=== PATIENT | female | born 1930 | race Caucasian/White ===

== ENCOUNTER 2016-04-18 11:00 | Inpatient (IN) | payer OTHER, MEDICARE ==
[~2016-04-18] VITALS: Ht 154.9 cm; Wt 63.1 kg
[~2016-04-18 11:00] MED LIST: ALPRAZOLAM0.25 MG PO; ANTIVERT 25 MG25 M1 PO; ANTIVERT 25MG #1 PAC PO; AZITHROMYCIN250 M1 PO; B-121000 MC3 PO; B12 1MG PE1000 MCG/M IM; CEFTIN500 M1 PO; CEFUROXIME AXE500 MG PO; CIPRO 250MG250 MG PO; CIPRO 500MG TA500 MG PO; CYANOCOBAL1000 MCG/2 IM; DAILY MULTIPLE1 EACH PO; GLUCOPHAGE850 M1 PO; LISINOPRIL10 MG PO; LISINOPRIL20 M1 PO; LISINOPRIL40 M1 PO; LOPRESSOR50 MG PO; MAG-OX 400400 MG PO; MAGNESIUM400 M1 PO; METFORMIN HCL850 M1 PO; MIRALAX17 GM PO; MULTIVITAMINS1 EAC9 PO; NYSTATIN100000 UNI PO; OMEPRAZOLE40 M1 PO; OMEPRAZOLE40 MG PO; PLAVIX 75MG TAB75 MG PO; PLAVIX75 M1 PO; PRILOSEC 20MG C20 MG PO; SIMVASTATIN20 M2 PO; SIMVASTATIN20 MG PO; TOPROL XL25 M1 PO; TOPROL XL50 M1 PO; TYLENOL #31 TAB PO; TYLENOL XSTR500 MG PO; VIGAMOX 0.60 GTT/1 B IO; VITAB121000 PO; XANAX0.25 M1 PO
--- NOTE | 2016-04-18 11:03 | ED GENERAL ADULT ---
History of Present Illness General Chief Complaint: General Adult Stated Complaint: BIBA WEAKNESS Source: patient, family Exam Limitations: poor historian Vital Signs & Intake/Output Vital Signs & Intake/Output Vital Signs Date Time Temp Pulse Resp B/P Pulse O2 O2 Flow FiO2 Ox Delivery Rate 04/18 1746 98.3 69 20 130/60 95 Nasal Cannula 04/18 1619 97.9 69 20 127/60 95 Nasal 2.0L Cannula 04/18 1617 97.8 04/18 1321 78 18 122/70 93 Room Air 04/18 1106 97.8 74 18 123/58 91 Allergies Coded Allergies: pork derived (porcine) (DIETARY RESTRICTION 06/05/15) Reconcile Medications Acetaminophen (Tylenol Xstr) 500 MG TAB 2 TAB PO Q6 PRN PAIN (Reported) Alprazolam (Xanax) 0.25 MG TABLET 1 TAB PO Q8H PRN ANXIETY (Reported) Clopidogrel Bisulfate (Plavix) 75 MG TABLET 1 TAB PO DAILY PROPHYLACTIC ( Reported) Cyanocobalamin (Vitamin B-12) (Cyanocobalamin Injection) 1,000 MCG/ML VIAL 1 ML IM Q30D SUPPLEMENT (Reported) Cyanocobalamin (Vitamin B-12) (B-12) 1,000 MCG TABLET 1 TAB PO DAILY SUPPLEMENT (Reported) Lisinopril 40 MG TABLET 1 TAB PO DAILY HTN (Reported) Magnesium Oxide (Magnesium) 400 MG CAPSULE 1 CAP PO DAILY SUPPLEMENT ( Reported) Metformin HCl 850 MG TABLET 1 TAB PO BID DM (Reported) Metoprolol Succ XL (Toprol XL) 25 MG TAB 1 TAB PO DAILY HTN (Reported) Multiple Vitamin (Multivitamins) 1 EACH TABLET 1 TAB PO DAILY SUPPLEMENT ( Reported) Omeprazole 40 MG CAPSULE. 1 CAP PO DAILY GERD (Reported) Simvastatin (Simvastatin*) 20 MG TABLET 1 TAB PO QPM HPL (Reported) Triage Nurses Notes Reviewed? yes Onset: Abrupt Duration: hour(s): Timing: recent history HPI: 04/18/16 85-year-old female presents to the emergency department for weakness and the sensation that she's going to . According to her family members she said that she woke up this morning feeling weak and said she was feeling like she was given a . There is no chest pain there is no headache there is no fever. The onset of the symptoms were abrupt, the duration was just today, the severity was significant as her symptoms required her to come to the emergency department for care. She has past medical history of recent onset of slurred speech. This is been worked up and no etiology was found. She does admit to cough and some difficulty breathing. Past History Medical History Any Pertinent Medical History? see below for history Neurological: CVA EENT: cataracts Cardiovascular: CAD, hypertension, hyperlipidemia Respiratory: NONE Gastrointestinal: GERD, GI BLEED Hepatic: NONE Renal: UTI Musculoskeletal: NONE Psychiatric: NONE Endocrine: diabetes, B12 DEFICIENCY Blood Disorders: NONE Cancer(s): NONE SECURITY SYSTEM TECHNICIAN/Reproductive: NONE History of MRSA: No History of VRE: No History of CDIFF: No Surgical History Surgical History: ENDARDERECTOMY CARDIAC STENTS ANGIOPLASTY AND STENTING Psychosocial History Who do you live with Daughter Services at Home None What is your primary language [facility] Family History Hx Contributory? No Review of Systems Review of Systems Constitutional: Denies: fever. EENTM: Denies: visual changes. Respiratory: Reports: cough, short of breath. Cardiovascular: Denies: chest pain. GI: Denies: abdominal pain. Genitourinary: Reports: no symptoms. Musculoskeletal: Reports: no symptoms. Skin: Denies: rash. Neurological/Psychological: Denies: headache. Physical Exam Physical Exam General Appearance: alert, awake, anxious, moderate distress Head: atraumatic, normal appearance Eyes: Bilateral: normal appearance, PERRL, EOMI. Ears, Nose, Throat: normal pharynx, normal ENT inspection Neck: normal inspection, supple, full range of motion Respiratory: chest non-tender, decreased breath sounds Cardiovascular: regular rate/rhythm Peripheral Pulses: 4+ radial (R), 4+ radial (L) Gastrointestinal: non-tender Back: decreased range of motion Extremities: no edema Neurologic/Psych: no motor/sensory deficits, awake, alert, oriented x 3 Skin: intact, normal color Core Measures ACS in differential dx? Yes CVA/TIA Diagnosis: No Severe Sepsis Present: No Septic Shock Present: No Progress Differential Diagnoses I considered the following diagnoses in my evaluation of the patient: [Pneumonia , bronchitis, sepsis, acute coronary syndrome, UTI] Plan of Care: Orders Procedure Date/time Status Consistent Carbohydrate 2 04/19 D Active Heart Healthy Diet 04/19 B Active CBC WITHOUT DIFFERENTIAL 04/19 599 Active BASIC ELECTROLYTES PLUS BUN&CR 04/19 599 Active Heart Healthy Diet 04/18 D Complete BLOOD CULTURE 04/18 1639 Active Pathway - chart 04/18 1624 Active House Staff 04/18 1624 Active BLOOD CULTURE 04/18 1624 Active Code Status 04/18 1624 Active PT Evaluate & Treat 04/18 1557 Active Patient Data 04/18 1546 Active Admit to inpatient 04/18 1537 Active Vital Signs 04/18 1537 Active Code Status 04/18 1537 Complete Intake & Output 04/18 1311 Active STREP PNEUMO URINARY ANTIGEN 04/18 1251 Complete LEGIONELLA URINARY ANTIGEN 04/18 1251 Complete RAPID VIRAL INFLUENZA A 04/18 1200 Complete CULTURE,URINE 04/18 1200 Active URINALYSIS 04/18 1200 Complete TROPONIN LEVEL 04/18 1200 Complete COMPREHENSIVE METABOLIC PANEL 04/18 1200 Complete CBC WITHOUT DIFFERENTIAL 04/18 1200 Complete EKG 04/18 1120 Active SWALLOW EVALUATION 04/18 UNK Active Lab Add-on Test 04/18 UNK Active VTE Mechanical Prophylaxis 04/18 UNK Active FingerStick- Glucose 04/18 UNK Active Current Medications Sig/Amrik Start time Last Medication Dose Stop Time Status Admin Azithromycin 500 MG DAILY 04/19 1000 AC (Zithromax) Dextrose/Water 250 ML (D5W) Ceftriaxone Sodium 1,000 MG DAILY 04/19 1000 AC (Rocephin) Cyanocobalamin 1,000 MCG DAILY 04/19 1000 AC (Vitamin B12) Enoxaparin Sodium 40 MG DAILY 04/19 1000 AC (Lovenox) Lisinopril 40 MG DAILY 04/19 1000 CAN (Prinivil) Magnesium Oxide 400 MG DAILY 04/19 1000 AC (Mag-Ox) Omeprazole 40 MG DAILY AC 04/19 0700 AC (Prilosec) Insulin Aspart 0 TIDAC 04/18 1700 AC (NovoLOG) Alprazolam 0.25 MG Q8H PRN 04/18 1645 AC (Xanax) 04/25 1644 Metoprolol Succinate 25 MG DAILY 04/18 1631 AC (Toprol XL) Acetaminophen 650 MG Q6P PRN 04/18 1630 AC (Tylenol) Clopidogrel Bisulfate 75 MG DAILY 04/18 1625 AC (Plavix) Laboratory Tests 04/18/16 1231: Urine Color YEL, Urine Clarity CLEAR, Urine pH 6.0, Ur Specific [place] 1.020, Urine Protein NEG, Urine Ketones NEG, Urine Nitrite NEG, Urine Bilirubin NEG, Urine Urobilinogen 0.2, Ur Leukocyte Esterase NEG, Ur Microscopic EXAM NOT REQUIRED, Urine Hemoglobin NEG, Urine Glucose NEG 04/18/16 1228: Anion Gap 7, Estimated GFR > 60, BUN/Creatinine Ratio 34.0 H, Glucose 101 H, Calcium 9.1, Total Bilirubin 1.1, AST 21, ALT 27, Alkaline Phosphatase 55, Troponin I 0.06, Total Protein 5.9 L, Albumin 3.5, Globulin 2.4, Albumin/ Globulin Ratio 1.5, CBC w Diff NO MAN DIFF REQ, RBC 3.93 L, MCV 97.3, MCH 32.0 H, RDW 16.6 H, MPV 6.9 L, Gran % 85.5 H, Lymphocytes % 13.3 L, Monocytes % 1.0 L, Eosinophils % 0, Basophils % 0.2, Absolute Granulocytes 6.3, Absolute Lymphocytes 1.0 L, Absolute Monocytes 0.1 L, Absolute Eosinophils 0, Absolute Basophils 0, PUBS MCHC 32.9 L Microbiology 04/18 1820 BLOOD: Blood Culture - RECD 04/18 1810 BLOOD: Blood Culture - RECD 04/18 1659 URINE ROUT: Legionella Antigen - CAN Cancelled: Cancelled via OE: Per MD Decision 04/18 1251 URINE ROUT: Legionella Antigen - COMP 04/18 1251 URINE ROUT: Streptococcus pneumoniae Antigen (M - COMP 04/18 1231 URINE ROUT: Urine Culture - RECD Initial ED EKG: NSR, nonspecific ST T wave chg Departure Departure Disposition: STILL A PATIENT Condition: Stable Clinical Impression Primary Impression: Pneumonia Referrals: CAYLA STOKES,VIVIANE Pierce (PCP/Family) Departure Forms: Customer Survey General Discharge Information Comments The patient was treated with IV antibiotics and placed on oxygen. She was admitted to the hospital for further care. She did have bandemia, with a left shift. Chest x-ray shows right middle lobe infiltrate. PATIENT: LOAN ANNE PRESENT AGE: 85 PATIENT ACCOUNT NO: [id number] : 30 LOCATION: [facility] ORDERING PHYSICIAN: JANEEN HADLEY DO SERVICE DATE: 04/18/16-1200 EXAM TYPE: RAD - XRY-PORTABLE CHEST XRAY EXAMINATION: XR PORTABLE CHEST CLINICAL INFORMATION: Evaluate for pneumonia. COMPARISON: Chest radiograph 03/06/[address] chest 07/13/2015. TECHNIQUE: Portable AP view of the chest was obtained. FINDINGS: Although this patient has a known epicardial fat pad there is increased opacity within the right lower hemithorax that obscures the right mediastinal contours which raises the suspicion of a middle lobe pneumonia. There is no pleural effusion or pneumothorax. Upper mediastinal contours are stable. Surgical clips are visualized within the neck. No acute osseous finding. IMPRESSION: Suspected right middle lobe pneumonia. DICTATED BY: CHEYENNE KENNEY MD DATE/TIME DICTATED:04/18/161236 DRAG SAWYER:RAYMOND DATE/TIME TRANSCRIBED:04/18/161236 CONFIDENTIAL, DO NOT COPY WITHOUT APPROPRIATE AUTHORIZATION. <Electronically signed in Other Vendor System> SIGNED BY: CHEYENNE KENNEY MD 04/18 1247 Admission Note Spoke With: SHEA MCNULTY MD Documentation of Exam: Documentation of any treatments & extenuating circumstances including Concerns Regarding Discharge (functional status, medication knowledge or non-compliance, living conditions, etc.) that warrant an admission rather than observation: [The patient needs admission for IV antibiotics, oxygen, she is short of breath on exertion] Critical Care Note Critical Care Note Critical Care Time: non-applicable
--- NOTE | 2016-04-18 11:19 | NUR ---
NING FROM HOME, PER EMS, FAMILY REPORTS PT HAS BEEN C/O WEAKNESS AND SOB X 5 WEEKS. TODAY C/O HEADACHE, STATES, "I WANT TO ". PT ALERT, PALE, PRIMARILY CENTRAL AFRICAN SPEAKING. 02 SAT 91% RA, PLACED ON 02 AT 2L NASAL CANULA. EVALUATED BY LEONIE.
--- NOTE | 2016-04-18 11:50 | NUR ---
PT'S DAUGHTER REPORTS THAT SHE HASNT TAKEN HER MEDS THIS AM, AMBULATES WITH A CANE.
--- NOTE | 2016-04-18 12:30 | NUR ---
PT BACK FROM CT SCAN AND RADIOLOGY. STATES "IM OK". PT DENIES ANY CURRENT PAIN. FLU SWAB OBTAINED AND SENT. BLOOD DRAW IN PROGRESS
--- NOTE | 2016-04-18 12:30 | NUR ---
ASSITED TO COMMODE. ABLE TO PIVOT WITH HELP.
--- NOTE | 2016-04-18 12:37 | CT SCAN REPORT ---
EXAMINATION: CT HEAD WITHOUT CONTRAST CLINICAL INFORMATION: Altered mental status. COMPARISON: CT head 03/14/2016. TECHNIQUE: Contiguous axial imaging was performed from the skull base to vertex without intravenous administration of contrast. DLP: 743.8 mGy-cm. FINDINGS: There is chronic encephalomalacia and gliosis within the medial right occipital lobe related to an old right posterior cerebral artery territory infarct. An old lacunar infarct within the left centrum semiovale is stable. There is extensive hypoattenuation throughout the periventricular white matter that most likely represents a chronic manifestation of small vessel ischemia. There is no acute intracranial hemorrhage or abnormal extra-axial collection. Naik-white matter differentiation is grossly preserved and there is no evidence of acute territorial infarct. A dome-shaped calcified dural based mass that bulges into the posterior fossa to the left of midline presumably representing a chronically calcified meningioma remains unchanged when compared to the recent CT scan of the head from 03/06/2016. There is no intracranial mass effect or midline shift. No abnormal extra axial collection to lateral and third ventricles are proportionate to the subarachnoid spaces. No hydrocephalus. The calvarium and skull base are intact. Mastoid air cells and middle ear cavities are well aerated. Visualized paranasal sinuses are well aerated. IMPRESSION: Stable chronic findings. No evidence of acute territorial infarct or hemorrhage.
[2016-04-18 12:38] LABS: ABSOLUTE BASOPHIL COUNT 0 /CUMM (0.0-0.2); ABSOLUTE EOSINOPHIL COUNT 0 /CUMM (0.0-0.7); ABSOLUTE GRANULOCYTE CT 6.3 /CUMM (1.4-6.5); ABSOLUTE MONOCYTE COUNT 0.1 /CUMM (0.10-0.60); BASOPHIL % 0.2 % (0.0-2.0); EOSINOPHIL % 0 % (0-5); HEMATOCRIT 38.3 % (37-47); MEAN CORPUSCULAR HGB CONC 32.9 G/DL (33.0-37.0); MEAN CORPUSCULAR VOLUME 97.3 FL (81.0-99.0); MEAN PLATELET VOLUME 6.9 FL (7.4-10.4); PLATELET COUNT 179 /CUMM (130-400); RBC DISTRIBUTION WIDTH 16.6 % (11.5-14.5); RED BLOOD CELL CT 3.93 /CUMM (4.20-5.40); WHITE BLOOD CELL COUNT 7.4 /CUMM (4.8-10.8)
--- NOTE | 2016-04-18 12:47 | RADIOLOGY REPORT ---
EXAMINATION: XR PORTABLE CHEST CLINICAL INFORMATION: Evaluate for pneumonia. COMPARISON: Chest radiograph 03/06/[address] chest 07/13/2015. TECHNIQUE: Portable AP view of the chest was obtained. FINDINGS: Although this patient has a known epicardial fat pad there is increased opacity within the right lower hemithorax that obscures the right mediastinal contours which raises the suspicion of a middle lobe pneumonia. There is no pleural effusion or pneumothorax. Upper mediastinal contours are stable. Surgical clips are visualized within the neck. No acute osseous finding. IMPRESSION: Suspected right middle lobe pneumonia.
[2016-04-18 12:56] LABS: GRANULOCYTE % 85.5 % (42.2-75.2)
--- NOTE | 2016-04-18 13:37 | NUR ---
PT MEDICATED WITH 650MG PO OF TYELNOL. PT REPOSITIONED IN BED, FAMILY REMAINS AT BEDSIDE
--- NOTE | 2016-04-18 14:30 | NUR ---
HEART HEALTHY DIET ORDERED.
--- NOTE | 2016-04-18 14:39 | NUR ---
[facility] ([facility]) [phone] [facility] ([place])
--- NOTE | 2016-04-18 15:36 | NUR ---
ASSUMED CARE OF THIS PATIENT REPORT RECEIVED FROM CHAPO SCHAFER 2ND IV ACCESS ESTABLISHED, #22 RW IV ROCEPHIN INFUSION INITIATED PER ORDERS PER REPORT FROM CHAPO SCHAFER PT DID NOT NEED B/C PRIOR TO STARTING ABX, CONFIRMED SAME WITH DR HADLEY.
--- NOTE | 2016-04-18 16:00 | NUR ---
[facility] PROVIDED HOUSE STAFF AT BEDSIDE
--- NOTE | 2016-04-18 16:18 | NUR ---
IV ZITHROMAX INFUSION INITIATED PER ORDERS
--- NOTE | 2016-04-18 16:22 | Admission Certification ---
Admission Certification Certification Statement - As attending physician, I certify that at the time of - admission, based on clinical presentation, severity of - symptoms, need for further diagnostic testing and - therapeutic interventions, and risk of adverse outcomes - without in-hospital treatment, in my clinical assessment, - this patient requires an acute hospital stay for a minimum - of two nights or longer. I have also considered psychsocial - factors such as support system, advanced age, financial - issues, cognitive issues, and failed out-patient treatments, - past re-admission history, safety of patient, and lack of - compliance as applicable. Specific rationale supporting this admission is: PNEUMONIA IN PT WITH DM, HTN AND CAD
--- NOTE | 2016-04-18 16:27 | History & Physical ---
NANCY VIDALES MD 04/18/16 3746: General Information and HPI MD Statement: I have seen and personally examined ZULMA ANNE and documented this H&P. The patient is a 85 year old F who presented with a patient stated chief complaint of altered mental status. Source of Information: patient, family, old records Exam Limitations: clinical condition, poor historian History of Present Illness: Ms. Anne is a pleasant 85 year old [place] female with significant PMH of CVA, HTN, HLD, coronary artery disease status post PCI in 2007, peripheral vascular disease status post right carotid endarterectomy, patent foramen ovale, anxiety, type 2 DM and GERD who was brought in to [facility] via ambulance after her daughter noted that the patient was not as responsive as normal while talking on the phone. History is obtained mostly from patient's daughter as patient's primary language is [place]. Daugther endorsed increasing weakness and delayed speech in her mother for about 6 weeks, beginning after her last discharge from [facility] on 02/03/16 for acute hypoxemic respiratory failure due to community-acquired pneumonia. Zulma was noted to be delayed in her responses this morning and reported to her daughter that she "feels like she is dying" because she was so weak. Associated symptoms include lethargy/weakness, decreased appetite without weight loss, cough, dyspnea on exertion as well as a choking cessation when she has fluids or solid food. Patient currently denies fever, chills, chest pain, palpitations, sputum production, abdominal pain, dysuria, constipation, diarrhea or recent weight loss. Past surgical history is significant for endarterectomy and PCI s/p stenting in 2007. Social history is negative for tobacco use (current or prior) as well as negative for alcohol or illicit drug use. Patient ambulates with use of a cane. Patient lives with her eldest daughter. She is independant in her ADLs. Allergies/Medications Home Med list Acetaminophen (Tylenol Xstr) 500 MG TAB 2 TAB PO Q6 PRN PAIN (Reported) Alprazolam (Xanax) 0.25 MG TABLET 1 TAB PO Q8H PRN ANXIETY (Reported) Clopidogrel Bisulfate (Plavix) 75 MG TABLET 1 TAB PO DAILY PROPHYLACTIC ( Reported) Cyanocobalamin (Vitamin B-12) (Cyanocobalamin Injection) 1,000 MCG/ML VIAL 1 ML IM Q30D SUPPLEMENT (Reported) Cyanocobalamin (Vitamin B-12) (B-12) 1,000 MCG TABLET 1 TAB PO DAILY SUPPLEMENT (Reported) Lisinopril 40 MG TABLET 1 TAB PO DAILY HTN (Reported) Magnesium Oxide (Magnesium) 400 MG CAPSULE 1 CAP PO DAILY SUPPLEMENT ( Reported) Metformin HCl 850 MG TABLET 1 TAB PO BID DM (Reported) Metoprolol Succ XL (Toprol XL) 25 MG TAB 1 TAB PO DAILY HTN (Reported) Multiple Vitamin (Multivitamins) 1 EACH TABLET 1 TAB PO DAILY SUPPLEMENT ( Reported) Omeprazole 40 MG CAPSULE.DR 1 CAP PO DAILY GERD (Reported) Simvastatin (Simvastatin*) 20 MG TABLET 1 TAB PO QPM HPL (Reported) Compliance With Home Meds: UNKNOWN Past History Travel History Traveled to [place] past 21 day No Medical History Neurological: CVA EENT: cataracts Cardiovascular: CAD, hypertension, hyperlipidemia Respiratory: NONE Gastrointestinal: GERD, GI BLEED Hepatic: NONE Renal: UTI Musculoskeletal: NONE Psychiatric: NONE Endocrine: diabetes, B12 DEFICIENCY Blood Disorders: NONE Cancer(s): NONE JOURNEYMAN PRESSMAN/Reproductive: NONE History of MRSA: No History of VRE: No History of CDIFF: No Isolation History: Standard Surgical History Surgical History: ENDARDERECTOMY CARDIAC STENTS ANGIOPLASTY AND STENTING Past Family/Social History Psychosocial History Where do you live? Home Who Do You Live With? child Services at Home: None Primary Language: [place] Smoking Status: Never Smoked ETOH Use: denies use Illicit Drug Use: denies illicit drug use Functional Ability ADLs Independent: dressing, eating, toileting, bathing. Ambulation: cane IADLs Unknown: shopping, housework, finances, food prep, telephone, transportation, medication admin. Review of Systems Review of Systems Constitutional: Reports: malaise, weakness. Denies: chills, fever, unexplained weight loss. EENTM: Denies: blurred vision, visual changes, hearing changes, nasal congestion, throat pain. Cardiovascular: Reports: peripheral edema (Occasionally). Denies: chest pain, palpitations. Respiratory: Reports: cough, short of breath (On exertion). Denies: sputum production, wheezing. GI: Denies: abdominal pain, bloating, constipation, diarrhea, nausea, vomiting. Genitourinary: Denies: dysuria, hematuria, pain. Musculoskeletal: Denies: back pain. Skin: Denies: rash. Neurological/Psychological: Reports: weakness. Denies: confusion, headache, numbness, paresthesia, pre- existing deficit. Hematologic/Endocrine: Denies: bruising, bleeding. Immunologic/Allergic: Denies: splenectomy. All Other Systems: Reviewed and Negative Exam & Diagnostic Data Last 24 Hrs of Vital Signs/I&O Vital Signs Date Time Temp Pulse Resp B/P Pulse O2 O2 Flow FiO2 Ox Delivery Rate 04/18 1619 97.9 69 20 127/60 95 Nasal 2.0L Cannula 04/18 1617 97.8 04/18 1321 78 18 122/70 93 Room Air 04/18 1106 97.8 74 18 123/58 91 Intake & Output 04/18 1600 04/18 0800 04/18 0000 Intake Total 0 Output Total Balance 0 Intake, Oral 0 Patient 150 lb Weight Physical Exam General Appearance Alert, Oriented X3, Cooperative, No Acute Distress Skin No Significant Lesion HEENT Atraumatic, PERRLA, EOMI, Mucous Membr. moist/pink Neck Supple, No JVD Lymphatic Cervical nl Cardiovascular Regular Rate, Normal S1, Normal S2 Lungs Rhonchi appreciated at left lung base, no respiratory distress noted, normal air entry bilaterally. Abdomen Normal Bowel Sounds, Soft, No Tenderness, No Hepatospenomegaly, No Masses Neurological Normal Speech, Normal Tone Extremities No Clubbing, No Cyanosis, Minimal bilateral edema appreciated. Vascular Pulses Symmetrical Last 24 Hrs of Labs/Abiodun: Laboratory Tests 04/18/16 1231: Urine Color YEL, Urine Clarity CLEAR, Urine pH 6.0, Ur Specific [place] 1.020, Urine Protein NEG, Urine Ketones NEG, Urine Nitrite NEG, Urine Bilirubin NEG, Urine Urobilinogen 0.2, Ur Leukocyte Esterase NEG, Ur Microscopic EXAM NOT REQUIRED, Urine Hemoglobin NEG, Urine Glucose NEG 04/18/16 1228: Anion Gap 7, Estimated GFR > 60, BUN/Creatinine Ratio 34.0 H, Glucose 101 H, Calcium 9.1, Total Bilirubin 1.1, AST 21, ALT 27, Alkaline Phosphatase 55, Troponin I 0.06, Total Protein 5.9 L, Albumin 3.5, Globulin 2.4, Albumin/ Globulin Ratio 1.5, CBC w Diff NO MAN DIFF REQ, RBC 3.93 L, MCV 97.3, MCH 32.0 H, RDW 16.6 H, MPV 6.9 L, Gran % 85.5 H, Lymphocytes % 13.3 L, Monocytes % 1.0 L, Eosinophils % 0, Basophils % 0.2, Absolute Granulocytes 6.3, Absolute Lymphocytes 1.0 L, Absolute Monocytes 0.1 L, Absolute Eosinophils 0, Absolute Basophils 0, PUBS MCHC 32.9 L Microbiology 04/18 1659 URINE ROUT: Legionella Antigen - ORD 04/18 1659 URINE ROUT: Streptococcus pneumoniae Antigen (M - ORD 04/18 1639 BLOOD: Blood Culture - ORD 04/18 1624 BLOOD: Blood Culture - ORD 04/18 1231 URINE ROUT: Urine Culture - RECD Diagnostic Data EKG Results NSr with HR 71 bpm, PACs noted, QTC 448, flattening of T waves. CXR Results EXAMINATION: XR PORTABLE CHEST CLINICAL INFORMATION: Evaluate for pneumonia. COMPARISON: Chest radiograph 03/06/[address] chest 07/13/2015. TECHNIQUE: Portable AP view of the chest was obtained. FINDINGS: Although this patient has a known epicardial fat pad there is increased opacity within the right lower hemithorax that obscures the right mediastinal contours which raises the suspicion of a middle lobe pneumonia. There is no pleural effusion or pneumothorax. Upper mediastinal contours are stable. Surgical clips are visualized within the neck. No acute osseous finding. IMPRESSION: Suspected right middle lobe pneumonia. Other Results EXAMINATION: CT HEAD WITHOUT CONTRAST CLINICAL INFORMATION: Altered mental status. COMPARISON: CT head 03/14/2016. TECHNIQUE: Contiguous axial imaging was performed from the skull base to vertex without intravenous administration of contrast. DLP: 743.8 mGy-cm. FINDINGS: There is chronic encephalomalacia and gliosis within the medial right occipital lobe related to an old right posterior cerebral artery territory infarct. An old lacunar infarct within the left centrum semiovale is stable. There is extensive hypoattenuation throughout the periventricular white matter that most likely represents a chronic manifestation of small vessel ischemia. There is no acute intracranial hemorrhage or abnormal extra-axial collection. Naik-white matter differentiation is grossly preserved and there is no evidence of acute territorial infarct. A dome-shaped calcified dural based mass that bulges into the posterior fossa to the left of midline presumably representing a chronically calcified meningioma remains unchanged when compared to the recent CT scan of the head from 03/06/2016. There is no intracranial mass effect or midline shift. No abnormal extra axial collection to lateral and third ventricles are proportionate to the subarachnoid spaces. No hydrocephalus. The calvarium and skull base are intact. Mastoid air cells and middle ear cavities are well aerated. Visualized paranasal sinuses are well aerated. IMPRESSION: Stable chronic findings. No evidence of acute territorial infarct or hemorrhage. Assessment/Plan Assessment: Ms. Anne is a pleasant 85 year old female with PMH CVA, HTN, HLD, coronary artery disease status post PCI in 2007, peripheral vascular disease status post right carotid endarterectomy, patent foramen ovale, anxiety, type 2 DM and GERD who was sent in from home via ambulance after her daughter noted that Zulma was less responsive. The daughter noted that on a phone call this morning, Zulma reported she felt like she was dying because she was so weak. This was associated with recent reports of cough, dyspnea on exertion, decreased oral intake secondary to decreased appetite and recent episode of choking on food/ fluid. Patient currently denies fever, chills, dizziness, chest pain, palpitations, sputum production, abdominal pain, nausea, vomiting or change in bowel/bladder function. In the ED: Vital signs showed T 97.8, HR 74, RR 18, BP 123/59 and O2 saturation of 91% on RA. CBC was grossly normal (with WBC 7.4) and BEP was also WNL. Troponin was 0.06. UA was done which showed no signs of infection. EKG was obtained and revealed NSR with HR 71 bpm, PACs, QTC 448 and minor flattening of T waves. CXR showed suspected right middle lobe pneumonia. Head CT showed stable chronic findings, no acute infarct or hemorrhage. Patient was admitted to the general medicine floor and the following is the management: 1. Community acquired pneumonia * No fever, leukocytosis on amission, though patient endorses cough, dyspnea on exertion, malaise and CXR does show RML pneumonia * Rapid flu negative * Provide supplemental O2 to keep saturations >92% * Begin IV azithromycin and ceftriaxone * Blood cultures x 2, LRC, UC, urine for strep/legionella pending, f/u results * Consider aspiration or underlying malignancy due to recurrent PNA (last admission with acute hypoxic respiratory failure 2/2 PNA in January 2016) * Swallow evaluation placed for the AM, f/u results 2. CAD s/p stending, HTN * Vital signs Q shift * Continue metoprolol XL 25 mg PO daily * Plavix 75 mg PO daily 3. Type 2 DM * Hold metformin * Start low dose NSS TIDAC * Accuchecks TIDAC * Diabetic diet 4. GERD * Continue omeprazole 40 mg PO daily 5. Vitamin B12 deficiency * 1000 mcg PO daily of Vit B12 6. Anxiety * 0.25 mg PO xanax Q8H PRN anxiety FULL CODE DVTP: Lovenox SC & ALPS Diet: Consistent carbohydrate 2 Mild pain pathway As Ranked By This Provider Problem List: 1. Pneumonia 2. Hyperlipidemia 3. Hypertension 4. Vitamin B12 deficiency 5. Dyspnea 6. Malaise 7. Diabetes mellitus type 2 8. CVA 9. Benign essential hypertension 10. Asymptomatic coronary heart disease Core Measures/Miscellaneous Acute Coronary Syndrome ACS Diagnosis: No Cerebrovascular Accident CVA/TIA Diagnosis: No Congestive Heart Failure CHF Diagnosis: No Venous Thromboembolism VTE Risk Factors: Acute medical illness, Age > 40, Immobility, paresis VTE Prophylaxis Ordered Inpt: Mech & Pharm No Mech VTE prophylaxis d/t: No contraindications No VTE Pharm Prophylaxis d/t: No contraindications VTE Diagnosis: No VTE Type: NONE VTE Confirmed by (Test): NONE Severe Sepsis Severe Sepsis Present: No Septic Shock Septic Shock Present: No Miscellaneous Documentation Attending Case Discussed With: PRICILA STOKES,SHEA Lord Primary Care Physician: CAYLA STOKES,VIVIANE Pierce Patient sees these Specialists Unknown. Level of Patient Care: General Medicine PRICILA STOKES,SHEA 04/18/16 1652: Attending MD Review Statement Attending Statement Attending MD Statement: examined this patient, discuss w/resident/PA/COTTON CLEANER, agreed w/resident/PA/COTTON CLEANER, reviewed EMR data (avail), reviewed images Attending Assessment/Plan: 85 year old [place]an speaking female with PMH DM, HTN and CAD here with Comm Acq Pneumonia. Although no fever and obvious leukocytosis, pt c/o cough, SOB and generalized weakness and Xray shows RML pneumonia. Plan to bring to , check blood c/s, IV Ceftriaxone, Azithro and F/U swallow eval (? h/o occasional choking). Cont beta ian, statin, and plavix. F/u clinically. Given recurrent pneumonia (similar presentation in jan 2016) low threshold to look for aspiration vs CT chest to look for malignancy. DVT prophylaxis and f/u. PAULETTE MONTANO 04/18/16 1713: Resident Review Statement Resident Statement: examined this patient, discussed with internal combustion engineer, agreed with internal combustion engineer, reviewed images, amended to note Other Findings: 85-year-old lady with past medical history of CAD with stenting 2007, hyperlipidemia, hypertension, diabetes, CVA was brought to the hospital with chief complaint of weakness and coughing. Patient was discharged from the [facility] in January 2016 to rehabilitation with diagnoses of pneumonia at that time. Per patient and her daughter she is still have weakness and occasional dry coughing with exertional dyspnea for 6 weeks. She also reports that patient is is slow in responding to questions. Especially today when the daughter calls the patient's in the morning she could not answer her questions correctly. Patient also reports of occasional choking on foods and headaches but no fever, chills, diarrhea,, chest pain constipation, abdominal pain. Vital signs on admission were stable which is written above. Skin No Rashes, No Breakdown, No Significant Lesion HEENT Atraumatic, PERRLA, EOMI Neck Supple, No JVD, No thryomegaly Lymphatic Cervical nl Cardiovascular Regular Rate, Normal S1, Normal S2, 3/6 systolic murmur Lungs crackles on the base of the left lung Abdomen Normal Bowel Sounds, Soft, No Tenderness, No Hepatospenomegaly, No Masses Neurological Normal Gait, Normal Speech, Strength at 5/5 X4 Ext, Sensation Intact Extremities No Clubbing, No Cyanosis, No Edema,Normal Pulses Apparently patient O2 saturation on room air was 91% which increased to 95% on 2 L. Patient last echocardiogram showed pulmonary hypertension of 60 mmHg and stage I diastolic dysfunction BEP,CBC,troponin,UA was unremarkable CXR showed IMPRESSION: Suspected right middle lobe pneumonia. HEAD CT: IMPRESSION: Stable chronic findings. No evidence of acute territorial infarct or hemorrhage. EKG showed normal sinus rhythm, PACs, with flattening of the T in V4,V5 comparing to previous EKG Assessment and plan #Community-acquired pneumonia versus aspiration pneumonia * Admit to general floor * Vital signs per shift * Keep O2 saturation over 92% * Put the patient on IV ceftriaxone and IV azithromycin * Blood cultures 2, sputum culture * Swallow evaluation in the morning * Check urine Legionella and strep antigen #History of CAD, hypertension, hyperlipidemia, Anxiety -Continue home medication, lisinopril dose should be confirmed with the patient daughter #Diabetes -Hold metformin, sliding scale insulin, diabetic diet, Accu-Cheks 4 times a day DVT prophylaxis is Lovenox and Alps, full code, Tylenol for pain, diabetic diet
--- NOTE | 2016-04-18 16:37 | NUR ---
BED ASSIGNMENT RECEIVED AT 16:10, 230-2. ATTEMPTED TO GIVE REPORT TO CHAPO DIXON WHO WILL CALL BACK
--- NOTE | 2016-04-18 16:43 | NUR ---
BED ASSIGNMENT [id number]
--- NOTE | 2016-04-18 16:47 | NUR ---
REPORT TO CHAPO DIXON.
[2016-04-18 17:46] VITALS: BP 130/60
[2016-04-18 22:52] VITALS: BP 112/60
--- NOTE | 2016-04-19 06:45 | PN- Housestaff ---
See Addendum Subjective Follow-up For: CAP Altered mental status Subjective: Patient seen and examiend at bedside this AM. She reports she was not interested in the breakfast that was served to her, however her daughter is bringing her [employer]. Speech therapy was at bedside on interview and suggested that patient passed bedside swallow. She will be changed to mechanical soft/ground and thin liquids per their recommendations. Review of Systems Constitutional: Reports: malaise, weakness. Denies: chills, fever. EENTM: Denies: blurred vision, visual changes, hearing changes, nasal congestion, throat pain. Cardiovascular: Reports: peripheral edema (Occasionally). Denies: chest pain, palpitations. Respiratory: Reports: cough (Chronic), short of breath (On exertion). Denies: sputum production, wheezing. Gastrointestinal: Denies: abdominal pain, bloating, constipation, diarrhea. Genitourinary: Denies: dysuria. Musculoskeletal: Denies: back pain. Skin: Denies: rash. Neurological/Psychological: Reports: weakness. Denies: confusion, headache. Hematologic/Endocrine: Denies: bruising, bleeding. Objective Last 24 Hrs of Vital Signs/I&O Vital Signs Date Time Temp Pulse Resp B/P Pulse O2 O2 Flow FiO2 Ox Delivery Rate 04/19 1009 70 112/60 04/19 0619 94 Nasal 2.0L Cannula 04/19 0000 96 Nasal 2.0L Cannula 04/18 2252 98.4 70 20 112/60 96 Nasal Cannula 04/18 1850 130/76 04/18 1746 98.3 69 20 130/60 95 Nasal Cannula 04/18 1645 Nasal 2.0L Cannula 04/18 1619 97.9 69 20 127/60 95 Nasal 2.0L Cannula 04/18 1617 97.8 04/18 1321 78 18 122/70 93 Room Air 04/18 1106 97.8 74 18 123/58 91 Intake & Output 04/19 1600 04/19 0800 04/19 0000 Intake Total 580 Output Total 500 350 Balance -500 230 Intake, IV 100 Intake, Oral 480 Number 0 Bowel Movements Output, Urine 500 350 Patient 139 lb Weight Physical Exam General Appearance: Alert, Oriented X3, Cooperative, No Acute Distress Other Physical Findings: Skin No Significant Lesion HEENT Atraumatic, PERRLA, EOMI, Mucous Membr. moist/pink Neck Supple, No JVD Lymphatic Cervical nl Cardiovascular Regular Rate, Normal S1, Normal S2 Lungs Rhonchi appreciated at left lung base, no respiratory distress noted, normal air entry bilaterally. Abdomen Normal Bowel Sounds, Soft, No Tenderness, No Hepatospenomegaly, No Masses Neurological Normal Speech, Normal Tone Extremities No Clubbing, No Cyanosis, Minimal bilateral edema appreciated. Vascular Pulses Symmetrical Current Medications: Current Medications Sig/Amrik Start time Last Medication Dose Route Stop Time Status Admin Acetaminophen 650 MG Q6P PRN 04/18 1630 AC 04/18 PO 1940 Acetaminophen 0 .STK-MED ONE 04/18 1334 DC PO Acetaminophen 650 MG ONCE ONE 04/18 1330 DC 04/18 PO 04/18 1331 1337 Alprazolam 0.25 MG Q8H PRN 04/18 1645 AC 04/19 PO 04/25 1644 0020 Azithromycin 500 MG DAILY 04/19 1000 AC 04/19 Dextrose/Water 250 ML IV 1008 Azithromycin 500 MG ONCE ONE 04/18 1515 DC 04/18 Dextrose/Water 250 ML IV 04/18 1614 1617 Ceftriaxone Sodium 1,000 MG DAILY 04/19 1000 AC 04/19 IV 1008 Ceftriaxone Sodium 0 .STK-MED ONE 04/18 1530 DC .ROUTE Ceftriaxone Sodium 1,000 MG ONCE ONE 04/18 1515 DC 04/18 IV 04/18 1516 1535 Clopidogrel Bisulfate 75 MG DAILY 04/18 1625 AC 04/19 PO 1009 Cyanocobalamin 1,000 MCG DAILY 04/19 1000 AC 04/19 PO 1009 Enoxaparin Sodium 40 MG DAILY 04/19 1000 AC 04/19 SC 1009 Insulin Aspart 0 TIDAC 04/18 1700 AC SC Lisinopril 40 MG DAILY 04/20 1000 AC PO Lisinopril 40 MG ONCE ONE 04/19 1045 DC PO 04/19 1046 Lisinopril 20 MG DAILY 04/19 1036 DC PO Lisinopril 40 MG DAILY 04/19 1000 CAN PO Magnesium Oxide 400 MG DAILY 04/19 1000 AC 04/19 PO 1009 Metoprolol Succinate 25 MG DAILY 04/18 1631 AC 04/19 PO 1009 Omeprazole 40 MG DAILY AC 04/19 0700 AC PO Last 24 Hrs of Lab/Abiodun Results Last 24 Hrs of Labs/Mics: Laboratory Tests 04/19/16 0730: Anion Gap 7, Estimated GFR > 60, BUN/Creatinine Ratio 31.7 H, CBC w Diff NO MAN DIFF REQ, RBC 3.61 L, MCV 98.2, MCH 32.5 H, RDW 17.1 H, MPV 7.6, Gran % 76.5 H, Lymphocytes % 17.2 L, Monocytes % 5.8, Eosinophils % 0.2, Basophils % 0.3, Absolute Granulocytes 8.4 H, Absolute Lymphocytes 1.9, Absolute Monocytes 0.6, Absolute Eosinophils 0, Absolute Basophils 0, PUBS MCHC 33.1 04/18/16 1231: Urine Color YEL, Urine Clarity CLEAR, Urine pH 6.0, Ur Specific [place] 1.020, Urine Protein NEG, Urine Ketones NEG, Urine Nitrite NEG, Urine Bilirubin NEG, Urine Urobilinogen 0.2, Ur Leukocyte Esterase NEG, Ur Microscopic EXAM NOT REQUIRED, Urine Hemoglobin NEG, Urine Glucose NEG 04/18/16 1228: Anion Gap 7, Estimated GFR > 60, BUN/Creatinine Ratio 34.0 H, Glucose 101 H, Calcium 9.1, Total Bilirubin 1.1, AST 21, ALT 27, Alkaline Phosphatase 55, Troponin I 0.06, Total Protein 5.9 L, Albumin 3.5, Globulin 2.4, Albumin/ Globulin Ratio 1.5, CBC w Diff NO MAN DIFF REQ, RBC 3.93 L, MCV 97.3, MCH 32.0 H, RDW 16.6 H, MPV 6.9 L, Gran % 85.5 H, Lymphocytes % 13.3 L, Monocytes % 1.0 L, Eosinophils % 0, Basophils % 0.2, Absolute Granulocytes 6.3, Absolute Lymphocytes 1.0 L, Absolute Monocytes 0.1 L, Absolute Eosinophils 0, Absolute Basophils 0, PUBS MCHC 32.9 L Microbiology 04/18 1819 BLOOD: Blood Culture - RECD 04/18 1809 BLOOD: Blood Culture - RECD 04/18 1659 URINE ROUT: Legionella Antigen - CAN Cancelled: Cancelled via OE: Per MD Decision 04/18 1251 URINE ROUT: Legionella Antigen - COMP 04/18 1251 URINE ROUT: Streptococcus pneumoniae Antigen (M - COMP 04/18 1231 URINE ROUT: Urine Culture - RES Orders Radiology Findings: Head CT: FINDINGS: There is chronic encephalomalacia and gliosis within the medial right occipital lobe related to an old right posterior cerebral artery territory infarct. An old lacunar infarct within the left centrum semiovale is stable. There is extensive hypoattenuation throughout the periventricular white matter that most likely represents a chronic manifestation of small vessel ischemia. There is no acute intracranial hemorrhage or abnormal extra-axial collection. Naik-white matter differentiation is grossly preserved and there is no evidence of acute territorial infarct. A dome-shaped calcified dural based mass that bulges into the posterior fossa to the left of midline presumably representing a chronically calcified meningioma remains unchanged when compared to the recent CT scan of the head from 03/06/2016. There is no intracranial mass effect or midline shift. No abnormal extra axial collection to lateral and third ventricles are proportionate to the subarachnoid spaces. No hydrocephalus. The calvarium and skull base are intact. Mastoid air cells and middle ear cavities are well aerated. Visualized paranasal sinuses are well aerated. IMPRESSION: Stable chronic findings. No evidence of acute territorial infarct or hemorrhage. Assessment/Plan Assessment: Ms. Serrato is a pleasant 85 year old female with PMH CVA, HTN, HLD, coronary artery disease status post PCI in 2007, peripheral vascular disease status post right carotid endarterectomy, patent foramen ovale, anxiety, type 2 DM and GERD who was sent in from home via ambulance after her daughter noted that Zulma was less responsive. The daughter noted that on a phone call this morning, Zulma reported she felt like she was dying because she was so weak. This was associated with recent reports of cough, dyspnea on exertion, decreased oral intake secondary to decreased appetite and recent episode of choking on food/ fluid. Patient currently denies fever, chills, dizziness, chest pain, palpitations, sputum production, abdominal pain, nausea, vomiting or change in bowel/bladder function. In the ED: Vital signs showed T 97.8, HR 74, RR 18, BP 123/59 and O2 saturation of 91% on RA. CBC was grossly normal (with WBC 7.4) and BEP was also WNL. Troponin was 0.06. UA was done which showed no signs of infection. EKG was obtained and revealed NSR with HR 71 bpm, PACs, QTC 448 and minor flattening of T waves. CXR showed suspected right middle lobe pneumonia. Head CT showed stable chronic findings, no acute infarct or hemorrhage. Patient was admitted to the general medicine floor and the following is the management: 1. Community acquired pneumonia * No fever, leukocytosis on amission, though patient endorses cough, dyspnea on exertion, malaise and CXR does show RML pneumonia * Leukocytosis on AM labs to 10.9 today * Rapid flu negative * Provide supplemental O2 to keep saturations >92%, patient currently on 1 L and saturating well * Continue IV azithromycin and ceftriaxone, though if WBC continues to trend upwards, we will consider broadening coverage for HCAP as patient is in 90 day window for HCAP * Blood cultures x 2, LRC, UC, f/u results; urine for strep/legionella negative * Consider aspiration or underlying malignancy due to recurrent PNA (last admission with acute hypoxic respiratory failure 2/2 PNA in January 2016) * Though swallow eval shows no signs of aspiration today, consider barium swallow if suspicion persists * Change diet to mechanical ground and thins as per swallow eval 2. CAD s/p stending, HTN * Vital signs Q shift * Continue metoprolol XL 25 mg PO daily * Plavix 75 mg PO daily 3. Type 2 DM * Hold metformin * Start low dose NSS TIDAC * Accuchecks TIDAC * Diabetic diet 4. GERD * Continue omeprazole 40 mg PO daily 5. Vitamin B12 deficiency * 1000 mcg PO daily of Vit B12 6. Anxiety * 0.25 mg PO xanax Q8H PRN anxiety FULL CODE DVTP: Lovenox SC & ALPS Diet: Consistent carbohydrate 2 Mild pain pathway Problem List: 1. Hypertension 2. Hyperlipidemia 3. Right middle lobe pneumonia 4. Weakness 5. Diabetes mellitus type 2 6. Benign essential hypertension Pain Ratin Pain Location: N/A Pain Goal: Remain pain free Pain Plan: Tylenol for mild pain Tomorrow's Labs & Rationales: CBC (monitor response to IV antibiotics and if no improvement will broaden coverage for HCAP), BEP (increasing BUN, monitor)
[2016-04-19 08:53] LABS: ABSOLUTE BASOPHIL COUNT 0 /CUMM (0.0-0.2); ABSOLUTE EOSINOPHIL COUNT 0 /CUMM (0.0-0.7); ABSOLUTE GRANULOCYTE CT 8.4 /CUMM (1.4-6.5); ABSOLUTE LYMPH COUNT 1.9 /CUMM (1.2-3.4); ABSOLUTE MONOCYTE COUNT 0.6 /CUMM (0.10-0.60); BASOPHIL % 0.3 % (0.0-2.0); EOSINOPHIL % 0.2 % (0-5); GRANULOCYTE % 76.5 % (42.2-75.2); HEMATOCRIT 35.4 % (37-47); MEAN CORPUSCULAR HGB 32.5 PG (27.0-31.0); MEAN CORPUSCULAR HGB CONC 33.1 G/DL (33.0-37.0); MEAN CORPUSCULAR VOLUME 98.2 FL (81.0-99.0); MEAN PLATELET VOLUME 7.6 FL (7.4-10.4); PLATELET COUNT 180 /CUMM (130-400); RBC DISTRIBUTION WIDTH 17.1 % (11.5-14.5); RED BLOOD CELL CT 3.61 /CUMM (4.20-5.40); WHITE BLOOD CELL COUNT 10.9 /CUMM (4.8-10.8)
[2016-04-19] MEDS ORDERED: METOPROLOL TART25 M1 PO (11:42)
[2016-04-19] MEDS ORDERED: AMLODIPINE BESYL5 M1 PO (11:43)
[2016-04-19 13:39] VITALS: BP 110/70
--- NOTE | 2016-04-19 18:27 | NUR ---
ORDER FOR 40 MG LISINOPRIL FROM 1000 THIS MORNING STILL ACTIVE, PREVIOUS NURSE DID NOT GIVE-MEDICATION WAS NOT HERE FROM PHARMACY AT THAT TIME. BP AT THIS TIME IS 100/60, HAND SCREEN PRINTER MADE AWARE. HOLD MED FOR NOW. WILL CONTINUE TO MONITOR
[2016-04-19 22:33] VITALS: BP 120/70
[2016-04-20 06:01] VITALS: BP 118/70
--- NOTE | 2016-04-20 06:41 | PN- Housestaff ---
See Addendum Subjective Follow-up For: Community acquired PNA Subjective: Patient seen and examined at bedside this AM. She is requesting a sandwich, though we emphasized that she can only have ground/mechanical soft food due to bedside swallow she had yesterday. She denies fever, chills, chest pain, shortness of breath. Review of Systems Constitutional: Denies: chills, fever, malaise. EENTM: Denies: blurred vision, visual changes, hearing changes. Cardiovascular: Denies: chest pain, palpitations. Respiratory: Denies: cough, short of breath. Gastrointestinal: Denies: abdominal pain, bloating, constipation, diarrhea, nausea. Genitourinary: Denies: dysuria. Musculoskeletal: Denies: back pain. Skin: Denies: change in skin color, change in hair/nails. Neurological/Psychological: Denies: confusion. Hematologic/Endocrine: Denies: bruising. Immunologic/Allergic: Denies: splenectomy. Objective Last 24 Hrs of Vital Signs/I&O Vital Signs Date Time Temp Pulse Resp B/P Pulse O2 O2 Flow FiO2 Ox Delivery Rate 04/20 0929 90 118/70 04/20 0929 90 118/70 04/20 0910 93 Nasal 1.0L Cannula 04/20 0601 98.8 90 20 118/70 91 Nasal Cannula 04/20 0000 93 Nasal 1.0L Cannula 04/19 2233 97.6 88 19 120/70 93 Nasal Cannula 04/19 1830 91 Room Air 04/19 1829 85 100/60 04/19 1600 Nasal 1.0L Cannula 04/19 1339 97.4 95 18 110/70 94 Nasal 1.0L Cannula 04/19 1230 Nasal 1.0L Cannula 04/19 1129 93 Nasal 1.0L Cannula Intake & Output 04/20 1600 04/20 0800 04/20 0000 Intake Total 120 500 Output Total 350 Balance -230 500 Intake, Oral 120 500 Number 0 Bowel Movements Output, Urine 350 Physical Exam General Appearance: Alert, Oriented X3, Cooperative, No Acute Distress Other Physical Findings: Skin No Significant Lesion HEENT Atraumatic, PERRLA, EOMI, Mucous Membr. moist/pink Neck Supple, No JVD Lymphatic Cervical nl Cardiovascular Regular Rate, Normal S1, Normal S2 Lungs Rhonchi appreciated at left lung base, no respiratory distress noted, normal air entry bilaterally. Abdomen Normal Bowel Sounds, Soft, No Tenderness, No Hepatospenomegaly, No Masses Neurological Normal Speech, Normal Tone Extremities No Clubbing, No Cyanosis, Minimal bilateral edema appreciated. Vascular Pulses Symmetrical Current Medications: Current Medications Sig/Amrik Start time Last Medication Dose Route Stop Time Status Admin Acetaminophen 650 MG .STK-MED ONE 04/19 1234 DC PO 04/19 1235 Acetaminophen 650 MG Q6P PRN 04/18 1630 AC 04/19 PO 2108 Albuterol Sulfate 3 ML BID 04/19 1116 AC 04/20 INH 0906 Alprazolam 0.25 MG Q8H PRN 04/18 1645 AC 04/19 PO 08 1644 2108 Azithromycin 500 MG DAILY 04/19 1000 AC 04/20 Dextrose/Water 250 ML IV 0933 Ceftriaxone Sodium 1,000 MG DAILY 04/19 1000 AC 04/20 IV 0928 Clopidogrel Bisulfate 75 MG DAILY 04/18 1625 AC 04/20 PO 0929 Cyanocobalamin 1,000 MCG DAILY 04/19 1000 AC 04/20 PO 0928 Enoxaparin Sodium 40 MG DAILY 04/19 1000 AC 04/20 SC 0928 Insulin Aspart 0 TIDAC 04/18 1700 AC 04/19 SC 1157 Lisinopril 40 MG DAILY 04/20 1000 AC 04/20 PO 0929 Lisinopril 40 MG ONCE ONE 04/19 1045 DC PO 04/19 1046 Magnesium Oxide 400 MG DAILY 04/19 1000 AC 04/20 PO 0929 Metoprolol Succinate 25 MG DAILY 04/18 1631 DC 04/19 PO 1009 Metoprolol Tartrate 25 MG BID 04/20 1000 AC 04/20 PO 0929 Omeprazole 40 MG DAILY AC 04/19 0700 AC 04/20 PO 0653 Polyethylene Glycol 17 GM DAILY 04/20 1000 AC 04/20 PO 1009 Last 24 Hrs of Lab/Abiodun Results Last 24 Hrs of Labs/Mics: Laboratory Tests 04/20/16 0725: Anion Gap 7, Estimated GFR > 60, BUN/Creatinine Ratio 30.0 H, CBC w Diff NO MAN DIFF REQ, RBC 3.63 L, MCV 98.4, MCH 32.2 H, RDW 17.0 H, MPV 7.9, Gran % 63.9, Lymphocytes % 28.6, Monocytes % 6.7, Eosinophils % 0.5, Basophils % 0.3, Absolute Granulocytes 4.4, Absolute Lymphocytes 2.0, Absolute Monocytes 0.5, Absolute Eosinophils 0, Absolute Basophils 0, PUBS MCHC 32.7 L Microbiology 04/19 1506 LOWER RESP: Respiratory Culture - COLB 04/19 1506 LOWER RESP: Gram Stain - COLB Orders Radiology Findings: Head CT: IMPRESSION: Stable chronic findings. No evidence of acute territorial infarct or hemorrhage. CXR: IMPRESSION: Suspected right middle lobe pneumonia. Assessment/Plan Assessment: Ms. Serrato is a pleasant 85 year old female with PMH CVA, HTN, HLD, coronary artery disease status post PCI in 2007, peripheral vascular disease status post right carotid endarterectomy, patent foramen ovale, anxiety, type 2 DM and GERD who was sent in from home via ambulance after her daughter noted that Zulma was less responsive. The daughter noted that on a phone call this morning, Zulma reported she felt like she was dying because she was so weak. This was associated with recent reports of cough, dyspnea on exertion, decreased oral intake secondary to decreased appetite and recent episode of choking on food/ fluid. Patient currently denies fever, chills, dizziness, chest pain, palpitations, sputum production, abdominal pain, nausea, vomiting or change in bowel/bladder function. In the ED: Vital signs showed T 97.8, HR 74, RR 18, BP 123/59 and O2 saturation of 91% on RA. CBC was grossly normal (with WBC 7.4) and BEP was also WNL. Troponin was 0.06. UA was done which showed no signs of infection. EKG was obtained and revealed NSR with HR 71 bpm, PACs, QTC 448 and minor flattening of T waves. CXR showed suspected right middle lobe pneumonia. Head CT showed stable chronic findings, no acute infarct or hemorrhage. Patient was admitted to the general medicine floor and the following is the management: 1. Community acquired pneumonia * No fever, leukocytosis on amission, though patient endorses cough, dyspnea on exertion, malaise and CXR does show RML pneumonia * Leukocytosis on AM labs trended down to 6.9, patient has remained afebrile * Rapid flu negative * Provide supplemental O2 to keep saturations >92%, patient currently on room air and saturating well * Continue IV azithromycin and ceftriaxone, will switch to PO antibiotics tomorrow * Blood cultures x 2, LRC, UC, f/u results; urine for strep/legionella negative * Low threshold to consider aspiration or underlying malignancy due to recurrent PNA (last admission with acute hypoxic respiratory failure 2/2 PNA in January 2016) * Though swallow eval shows no signs of aspiration, consider barium swallow if suspicion persists * Change diet to mechanical ground and thins as per swallow eval 2. CAD s/p stending, HTN * Vital signs Q shift * Continue metoprolol XL 25 mg PO daily * Plavix 75 mg PO daily 3. Type 2 DM * Hold metformin * Start low dose NSS TIDAC * Accuchecks TIDAC * Diabetic diet 4. GERD * Continue omeprazole 40 mg PO daily 5. Vitamin B12 deficiency * 1000 mcg PO daily of Vit B12 6. Anxiety * 0.25 mg PO xanax Q8H PRN anxiety 7. Constipation * Start miralax daily for constipation and continue at discharge as patient FULL CODE DVTP: Lovenox SC & ALPS Diet: Consistent carbohydrate 2 Mild pain pathway Problem List: 1. Right middle lobe pneumonia 2. Hyperlipidemia 3. Hypertension 4. Vitamin B12 deficiency Pain Ratin Pain Location: n/a Pain Goal: Remain pain free Pain Plan: Tylenol for mild pain. Tomorrow's Labs & Rationales: None.
[2016-04-20 08:25] LABS: ABSOLUTE BASOPHIL COUNT 0 /CUMM (0.0-0.2); ABSOLUTE EOSINOPHIL COUNT 0 /CUMM (0.0-0.7); ABSOLUTE GRANULOCYTE CT 4.4 /CUMM (1.4-6.5); ABSOLUTE MONOCYTE COUNT 0.5 /CUMM (0.10-0.60); BASOPHIL % 0.3 % (0.0-2.0); EOSINOPHIL % 0.5 % (0-5); GRANULOCYTE % 63.9 % (42.2-75.2); HEMATOCRIT 35.7 % (37-47); MEAN CORPUSCULAR HGB 32.2 PG (27.0-31.0); MEAN CORPUSCULAR HGB CONC 32.7 G/DL (33.0-37.0); MEAN CORPUSCULAR VOLUME 98.4 FL (81.0-99.0); MEAN PLATELET VOLUME 7.9 FL (7.4-10.4); PLATELET COUNT 180 /CUMM (130-400); RED BLOOD CELL CT 3.63 /CUMM (4.20-5.40); WHITE BLOOD CELL COUNT 6.9 /CUMM (4.8-10.8)
[2016-04-20 15:13] VITALS: BP 130/70
[2016-04-20] MEDS ORDERED: MIRALAX119 GM PO (15:16)
[2016-04-20] MEDS ORDERED: AUGMENTIN 875-1 EACH PO (15:17)
--- NOTE | 2016-04-20 15:20 | Patient Discharge Instructions ---
Discharge Instructions General Discharge Information You were seen/treated for: Community acquired pneumonia Special Instructions: Please follow up with your PCP Dr. Gutierrez within 2 weeks of discharge. Please read through your medication list and take all medications as directed. We have made some changes. Please return with any fever, chills, cough with sputum production or other concerning symptoms. Diet Recommended Diet: Diabetic, Chopped/mechanical soft with thin liquids Activity Activity Self Limited: Yes Acute Coronary Syndrome Inclusion Criteria At DC or during hospital stay patient has or had the following: ACS DIAGNOSIS No Discharge Core Measures Meds if any: Prescribed or Continued at Discharge Meds if any: NOT Prescribed or Continued at Discharge Congestive Heart Failure Inclusion Criteria At DC or during hospital stay patient has or had the following: CHF DIAGNOSIS No Discharge Core Measures Meds if any: Prescribed or Continued at Discharge Meds if any: NOT Prescribed or Continued at Discharge Cerebrovascular accident Inclusion Criteria At DC or during hospital stay patient has or had the following: CVA/TIA Diagnosis No Discharge Core Measures Meds if any: Prescribed or Continued at Discharge Meds if any: NOT Prescribed or Continued at Discharge Venous thromboembolism Inclusion Criteria VTE Diagnosis No VTE Type NONE VTE Confirmed by (Test) NONE Discharge Core Measures - Per Current guidelines, there needs to be overlap - treatment for the first 5 days of Warfarin therapy. - If discharged on Warfarin prior to 5 days of - overlap therapy, the patient will need to be - assessed for post discharge needs including - *Post discharge parental anticoagulation - *Warfarin and/or parental anticoagulation education - *Follow up date to check INR post discharge At least 5 days overlap therapy as Inpatient No Meds if any: Prescribed or Continued at Discharge Note: Overlap Therapy is Warfarin and Anticoagulant Meds if any: NOT Prescribed or Continued at Discharge
--- NOTE | 2016-04-20 16:22 | Discharge Summary ---
Visit Information Visit Dates Admission Date: 04/18/16 Discharge Date: 04/21/2016 Hospital Course Course Attending Physician: ERIN STOKES,FAY Sullivan Primary Care Physician: CAYLA STOKES,VIVIANE Pierce Hospital Course: 85-year-old lady with past medical history of CAD with stenting 2007, hyperlipidemia, hypertension, diabetes, CVA was brought to the hospital with chief complaint of weakness and coughing. Patient was discharged from the [facility] in January 2016 to rehabilitation with diagnoses of pneumonia at that time. Per patient and her daughter she still was experiencing weakness and occasional dry coughing with exertional dyspnea for the past 6 weeks. The daughter also reported a slow response by her mother and occasional choking on foods. Patient denied any nausea, vomiting, abdominal pain, fevers, chills. Vital signs on admission were stable, no fever Skin No Rashes, No Breakdown, No Significant Lesion HEENT Atraumatic, PERRLA, EOMI Neck Supple, No JVD, No thryomegaly Lymphatic Cervical nl Cardiovascular Regular Rate, Normal S1, Normal S2, 3/6 systolic murmur Lungs crackles on the base of the left lung Abdomen Normal Bowel Sounds, Soft, No Tenderness, No Hepatospenomegaly, No Masses Neurological Normal Gait, Normal Speech, Strength at 5/5 X4 Ext, Sensation Intact Extremities No Clubbing, No Cyanosis, No Edema,Normal Pulses patient O2 saturation on room air was 91% which increased to 95% on 2 L. Patient last echocardiogram showed pulmonary hypertension of 60 mmHg and stage I diastolic dysfunction BEP,CBC,troponin,UA was unremarkable CXR showed IMPRESSION: Suspected right middle lobe pneumonia. HEAD CT: IMPRESSION: Stable chronic findings. No evidence of acute territorial infarct or hemorrhage. EKG showed normal sinus rhythm, PACs, with flattening of the T in V4,V5 comparing to previous EKG Patient was admitted to general floor and treated for these medical conditions: #Community-acquired pneumonia She was put on IV ceftriaxone and azithromycin. Swallow evaluation recommended mechanical soft with thin liquids. No fevers were observed. Patient was transitioned to Augmentin. #History of CAD, hypertension, hyperlipidemia, Anxiety we continued home medication doses. No major events were observed. #Diabetes we Held metformin, put the patient on sliding scale insulin. Sugars were controlled. Patient was put back on metformin upon discharge Allergies: Coded Allergies: pork derived (porcine) (DIETARY RESTRICTION 06/05/15) Disposition Summary Disposition Principal Diagnosis: Community-acquired Pneumonia Additional Diagnosis: diabetes Hypertension Anxiety Depression Discharge Disposition: SNF Discharge Instructions General Discharge Information Code Status: Full Code Patient's Diet: Heart healthy Patient's Activity: As tolerated Follow-Up Instructions/Appts: -Please follow-up with your primary care provider within 7 days after discharge. -We have made changes to your home medications, please read the instructions carefully. -Please come back to the hospital if your symptoms got worse. Medications at Discharge Discharge Medications: Stop taking the following medications: Cyanocobalamin (Vitamin B-12) (Cyanocobalamin Injection) 1,000 MCG/ML VIAL INTRAMUSC ONCE A MONTH Continue taking these medications: Acetaminophen (Tylenol Xstr) 500 MG TAB 2 Tablet ORAL EVERY SIX HOURS as needed for PAIN Comments: LAST GIVEN 04/05/15 @ 0745 Lisinopril (Lisinopril) 40 MG TABLET 1 Tablet ORAL DAILY Comments: Last Taken: 04/21/16 Time: 1000 Magnesium Oxide (Magnesium) 400 MG CAPSULE 1 Capsule ORAL DAILY Comments: Last Taken: 04/21/16 Time: 1000 Alprazolam (Xanax) 0.25 MG TABLET 1 Tablet ORAL Q8H as needed for ANXIETY Comments: Last Taken: 04/20/16 Time: 2000 Multiple Vitamin (Multivitamins) 1 EACH TABLET 1 Tablet ORAL DAILY Comments: VITAMIN Cyanocobalamin (Vitamin B-12) (B-12) 1,000 MCG TABLET 1 Tablet ORAL DAILY Comments: Last Taken: 04/21/16 Time: 1000 Omeprazole (Omeprazole) 40 MG CAPSULE.DR 1 Capsule ORAL DAILY Comments: Last Taken: 04/21/16 Time: 0600 Clopidogrel Bisulfate (Plavix) 75 MG TABLET 1 Tablet ORAL DAILY Comments: Last Taken: 04/21/16 Time: 1000 Metformin HCl (Metformin HCl) 850 MG TABLET 1 Tablet ORAL TWICE DAILY Comments: NOT TAKEN IN HOSPITAL Simvastatin (Simvastatin*) 20 MG TABLET 1 Tablet ORAL Every night Comments: NOT TAKEN IN HOSPITAL Metoprolol Tartrate (Metoprolol Tartrate) 25 MG TABLET 1 Tablet ORAL TWICE DAILY Comments: Last Taken: 04/21/16 Time: 1000 Amlodipine Besylate (Amlodipine Besylate) 5 MG TABLET 1 Tablet ORAL DAILY Comments: NOT TAKEN IN HOSPITAL Start taking the following new medications: Polyethylene Glycol 3350 (Miralax) 17 GRAM/DOSE POWDER 17 Gram ORAL DAILY Qty = 255 No Refills Instructions: mix with water, juice, soda, coffee or tea Comments: Last Taken: 04/21/16 Time: 1000 Amoxicillin/Potassium Clav (Augmentin 875-125 Tablet) 875 MG-125 MG TABLET 1 Tablet ORAL TWICE DAILY Qty = 16 No Refills Comments: Last Taken: 04/21/16 Time: 1000 Copies To: CAYLA STOKES,VIVIANE Pierce Attending MD Review Statement Documenting Attending: FAY KHAN MD Other Findings: Patient was sitting in chair this morning and did not have any new complaints. Apparently overnight she had complained of for chest pain or possibly back pain. EKG was done which did not show any ischemic changes. Her first set of troponin was done 6:00 this morning and that was negative. Currently patient denies any chest pain difficulty breathing fever or chills. Plans to continue Augmentin by oral dropped to complete total of 5 days of antibiotics. Wait for second troponin and if negative patient may be stable for discharge if bed is available at a short-term rehabilitation facility. Pts second troponin was negative too and total 3 troponins were negative during the whole hospital stay. DC to [facility] today.
[2016-04-20 22:38] VITALS: BP 124/70
--- NOTE | 2016-04-21 05:58 | Event Note ---
Event Note Event Note: Subjective: I was called by nursing staff after the patient complained of chest pain. Objective: The patient was lying comfortably in bed, not in apparent distress, with vitals stable that is bp- 130/72, hR- 69, TEMP 97.4, RR- 21, SPO2 94% ON ROOM AIR. She was complaining of chest pain centrally over the sternum, but denied any palpitations, shortness of breath, nausea, vomiting, sweating, or anxiety. On examination, she had a murmur present on cardiac auscultation which on correlation with the echocardiogram shows mitral regurgitation, lung sounds were clear with basal crepitations. Patient not in apparent distress. Assessment and plan: Given her history of coronary artery disease status post stent placement, diabetes mellitus, her age, acute corner syndrome cannot be ruled out based on only clinical findings. Thus the plan as follows: -EKG and troponin were ordered stat -We'll set of EKG and troponin 6 hours apart has been ordered Resident aware and agrees with the plan. The first EKG does not show signs of ischemia: Normal sinus rhythm with heart rate 70, QTc 441, NC 152, QRS [address]-T changes. First troponin is 0.02. Waiting for the second set at noon.
--- NOTE | 2016-04-21 06:27 | NUR ---
VSS- B/P 132/70, HR 69, RR 21, T 97.4, REPORTS CHEST PAIN, UNABLE TO DESCRIBE. STATES SHE NEVER HAD PAIN LIKE THIS BEFORE. NOTIFIED MD, TROPONIN AND EKG ORDERED.
[2016-04-21 06:46] VITALS: BP 132/70
--- NOTE | 2016-04-21 07:29 | PN- Housestaff ---
YUMIKO STOKES,[facility] 04/21/16 0729: Subjective Follow-up For: CAP Subjective: Pt is seen and examined at bedside. She states her breathing is much better. Pt does not endorse any complaints of chest thea/palpitation,fever/chills,nausea, vomiting, abdominal pain or dysuria. No acute o/n event reported. Review of Systems Constitutional: Reports: no symptoms. Objective Last 24 Hrs of Vital Signs/I&O .... Physical Exam General Appearance: Alert, Oriented X3, Cooperative Other Physical Findings: Skin No Significant Lesion HEENT Atraumatic, PERRLA, EOMI, Mucous Membr. moist/pink Neck Supple, No JVD Lymphatic Cervical nl Cardiovascular Regular Rate, Normal S1, Normal S2 Lungs Rhonchi appreciated at left lung base, no respiratory distress noted, normal air entry bilaterally. Abdomen Normal Bowel Sounds, Soft, No Tenderness, No Hepatospenomegaly, No Masses Neurological Normal Speech, Normal Tone Extremities No Clubbing, No Cyanosis, Minimal bilateral edema appreciated. Vascular Pulses Symmetrical Assessment/Plan Assessment: Ms. Serrato is a pleasant 85 year old female with PMH CVA, HTN, HLD, coronary artery disease status post PCI in 2007, peripheral vascular disease status post right carotid endarterectomy, patent foramen ovale, anxiety, type 2 DM and GERD who was sent in from home via ambulance after her daughter noted that Zulma was less responsive. The daughter noted that on a phone call this morning, Zulma reported she felt like she was dying because she was so weak. This was associated with recent reports of cough, dyspnea on exertion, decreased oral intake secondary to decreased appetite and recent episode of choking on food/ fluid. Patient currently denies fever, chills, dizziness, chest pain, palpitations, sputum production, abdominal pain, nausea, vomiting or change in bowel/bladder function. In the ED: Vital signs showed T 97.8, HR 74, RR 18, BP 123/59 and O2 saturation of 91% on RA. CBC was grossly normal (with WBC 7.4) and BEP was also WNL. Troponin was 0.06. UA was done which showed no signs of infection. EKG was obtained and revealed NSR with HR 71 bpm, PACs, QTC 448 and minor flattening of T waves. CXR showed suspected right middle lobe pneumonia. Head CT showed stable chronic findings, no acute infarct or hemorrhage. Patient was admitted to the general medicine floor and the following is the management: 1. Community acquired pneumonia * No fever, leukocytosis on amission, though patient endorses cough, dyspnea on exertion, malaise and CXR does show RML pneumonia * Leukocytosis on AM labs trended down, patient has remained afebrile * Rapid flu negative * Provide supplemental O2 to keep saturations >92%, patient currently on room air and saturating well * will switch to PO antibiotics tomorrow * Blood cultures x 2, LRC, UC, f/u results; urine for strep/legionella negative * Change diet to mechanical ground and thins as per swallow eval 2. CAD s/p stending, HTN * Vital signs Q shift * Continue metoprolol XL 25 mg PO daily * Plavix 75 mg PO daily 3. Type 2 DM * Hold metformin * Start low dose NSS TIDAC * Accuchecks TIDAC * Diabetic diet 4. GERD * Continue omeprazole 40 mg PO daily 5. Vitamin B12 deficiency * 1000 mcg PO daily of Vit B12 6. Anxiety * 0.25 mg PO xanax Q8H PRN anxiety 7. Constipation * Start miralax daily for constipation and continue at discharge as patient #Disposition Pt will be discharged to [facility]. FULL CODE DVTP: Lovenox SC & ALPS Diet: Consistent carbohydrate 2 Mild pain pathway Problem List: 1. Pneumonia Pain Ratin Pain Location: BACK Pain Goal: Remain pain free Pain Plan: PER PAIN PATHWY Tomorrow's Labs & Rationales: NONE-DISCHARGE JAMEY STOKES,HERMAN 04/21/16 1111: Attending MD Review Statement Attending Statement Attending MD Statement: examined this patient, discuss w/resident/PA/DERRICK BOAT [employer]NER, agreed w/resident/PA/DERRICK BOAT RUNNER Attending Assessment/Plan: Patient was sitting in chair this morning and did not have any new complaints. Apparently overnight she had complained of for chest pain or possibly back pain. EKG was done which did not show any ischemic changes. Her first set of troponin was done 6:00 this morning and that was negative. Currently patient denies any chest pain difficulty breathing fever or chills. Plans to continue Augmentin by oral dropped to complete total of 5 days of antibiotics. Wait for second troponin and if negative patient may be stable for discharge if bed is available at a short-term rehabilitation facility.
[2016-04-21 13:26] VITALS: BP 130/90
[2016-04-21 14:28] VITALS: BP 130/90
== END 2016-04-21 15:10 | DRG 194 ==
LOC: ENRESERVDT → ENRESERVTM → ERH 11:00 → 2NA 15:37 → ENPENDDIS 15:37 → ERHI 15:37 → 2NA 17:09
PROVIDERS: Emergency Medicine; Internal Medicine; Student in an Organized Health Care Education/Training Program; ADMIT Internal Medicine
DX: J18.9 Pneumonia, unspecified organism (principal); Q21.1 Atrial septal defect; E11.9 Type 2 diabetes mellitus without complications; I11.9 Hypertensive heart disease without heart failure; E53.8 Deficiency of other specified B group vitamins; Z79.84 Long term (current) use of oral hypoglycemic drugs; I25.10 Atherosclerotic heart disease of native coronary artery without angina pectoris; Z95.5 Presence of coronary angioplasty implant and graft; E78.5 Hyperlipidemia, unspecified; I73.9 Peripheral vascular disease, unspecified; F41.9 Anxiety disorder, unspecified; K21.9 Gastro-esophageal reflux disease without esophagitis
CPT/HCPCS: 2NASP; 36415; 81003; 82436; 87040; 87070; 87086; 87449; 87450; 87804; 87804-59; 93005; 93010; 96374; 97116-GO; 97161-GP; 97530-GO; J0456; J0696; J1650; J7060

== ENCOUNTER 2016-05-18 00:48 | Emergency (ER) | payer OTHER, MEDICARE ==
[~2016-05-18 00:48] MED LIST changes: +AMLODIPINE BESYL5 M1 PO; +AUGMENTIN 875-1 EACH PO; +METOPROLOL TART25 M1 PO; +MIRALAX119 GM PO
[2016-05-18 01:01] VITALS: BP 171/77
[2016-05-18] MEDS ORDERED: CILOXAN5 ML OPH (01:25)
--- NOTE | 2016-05-18 01:26 | ED EYE COMPLAINT ---
History of Present Illness General Chief Complaint: General Adult Stated Complaint: WEAKNESS/EYES BURNING/ITCHING PER PT Source: patient, family, old records Exam Limitations: no limitations Vital Signs & Intake/Output Vital Signs & Intake/Output Vital Signs Date Time Temp Pulse Resp B/P Pulse O2 O2 Flow FiO2 Ox Delivery Rate 05/18 0101 97.0 67 20 171/77 96 Allergies Coded Allergies: pork derived (porcine) (DIETARY RESTRICTION 06/05/15) Reconcile Medications Acetaminophen (Tylenol Xstr) 500 MG TAB 2 TAB PO Q6 PRN PAIN (Reported) Alprazolam (Xanax) 0.25 MG TABLET 1 TAB PO Q8H PRN ANXIETY (Reported) Amlodipine Besylate 5 MG TABLET 1 TAB PO DAILY heart (Reported) Ciprofloxacin (Ciloxan) 0.3 % DROPS 1 GTT OPH 4 TIMES/DAY conjunctivitis Clopidogrel Bisulfate (Plavix) 75 MG TABLET 1 TAB PO DAILY PROPHYLACTIC ( Reported) Cyanocobalamin (Vitamin B-12) (B-12) 1,000 MCG TABLET 1 TAB PO DAILY SUPPLEMENT (Reported) Lisinopril 40 MG TABLET 1 TAB PO DAILY HTN (Reported) Magnesium Oxide (Magnesium) 400 MG CAPSULE 1 CAP PO DAILY SUPPLEMENT ( Reported) Metformin HCl 850 MG TABLET 1 TAB PO BID DM (Reported) Metoprolol Tartrate 25 MG TABLET 1 TAB PO BID heart rate (Reported) Multiple Vitamin (Multivitamins) 1 EACH TABLET 1 TAB PO DAILY SUPPLEMENT ( Reported) Omeprazole 40 MG CAPSULE.DR 1 CAP PO DAILY GERD (Reported) Polyethylene Glycol 3350 (Miralax) 17 GRAM/DOSE POWDER 17 GM PO DAILY Constipation mix with water, juice, soda, coffee or tea Simvastatin (Simvastatin*) 20 MG TABLET 1 TAB PO QPM HPL (Reported) Triage Note: BILAT ITCHY EYES X 3 DAYS, PT REQUESTING EYE DRGeeta Triage Nurses Notes Reviewed? yes Onset: 3 days Duration: day(s):, constant, continues in ED Timing: recent history Injury Environment: home Severity: moderate No Modifying Factors: none Left Eye Associated Symptoms: itching, eyelid redness, eyelid swelling Right Eye Associated Symptoms: itching, eyelid redness, eyelid swelling LMP (ages 10-50): post menopausal : No Patient currently breastfeeds: No HPI: 3 days prior to admission patient complains of left eye and then right eye redness and itching with clear discharge crusty in the morning. She denies fever chills nausea vomiting diarrhea abdominal pain chest pain shortness breath headache dysuria bleeding change in vision. Past History Travel History Traveled to [place] past 21 day No Medical History Any Pertinent Medical History? see below for history Neurological: CVA EENT: cataracts Cardiovascular: CAD, hypertension, hyperlipidemia Respiratory: NONE Gastrointestinal: GERD, GI BLEED Hepatic: NONE Renal: UTI Musculoskeletal: NONE Psychiatric: NONE Endocrine: diabetes, B12 DEFICIENCY Blood Disorders: NONE Cancer(s): NONE RECYCLING MANAGER/Reproductive: NONE History of MRSA: No History of VRE: No History of CDIFF: No Surgical History Surgical History: ENDARDERECTOMY CARDIAC STENTS ANGIOPLASTY AND STENTING Psychosocial History Who do you live with Daughter Services at Home None What is your primary language [facility] Tobacco Use: Never used Family History Hx Contributory? No Review of Systems Review of Systems Constitutional: Reports: no symptoms. Eyes: Reports: see HPI, drainage. Ear: Reports: no symptoms. Nose: Reports: no symptoms. Mouth: Reports: no symptoms. Throat: Reports: no symptoms. Respiratory: Reports: no symptoms. Cardiovascular: Reports: no symptoms. GI: Reports: no symptoms. Genitourinary: Reports: no symptoms. Musculoskeletal: Reports: no symptoms. Skin: Reports: no symptoms. Neurological/Psychological: Reports: no symptoms. Hematologic/Endocrine: Reports: no symptoms. Immunologic/Allergic: Reports: no symptoms. All Other Systems: Reviewed and Negative Physical Exam General Appearance: well developed/nourished, mild distress General Inspection: normal inspection Eyelid: edema, erythema Conjunctiva/Sclera: injected Cornea: normal inspection EOM: intact Pupil: normal accommodation, normal pupil, PERRL Anterior Chamber: normal inspection General Inspection: normal inspection Eyelid: edema, erythema Conjunctiva/Sclera: injected Cornea: normal inspection EOM: intact Pupil: normal accommodation, normal pupil, PERRL Anterior Chamber: normal inspection Physical Exam Head: atraumatic Ears: Bilateral: canal normal, Tympanic normal. Nose: normal inspection Mouth/Throat: normal mouth inspection, pharynx normal Neck: normal inspection, supple, full range of motion Cardiovascular/Respiratory: normal breath sounds, normal peripheral pulses, regular rate/rhythm, no respiratory distress Neurologic/Psych: no motor/sensory deficits, awake, alert, oriented x 3, normal gait, normal mood/affect, software product specialist II-XII nml as tested Skin: intact, normal color, warm/dry Progress Differential Diagnosis: conjunctivitis Plan of Care: cipro drops Departure Departure Time of Disposition: 121 Disposition: HOME OR SELF CARE Condition: Stable Clinical Impression Primary Impression: Conjunctivitis Qualifiers: Conjunctivitis type: acute Acute conjunctivitis type: unspecified Laterality: unspecified laterality Qualified Code: H10.30 - Unspecified acute conjunctivitis, unspecified eye Referrals: CAYLA STOKES,VIVIANE Pierce (PCP/Family) Departure Forms: Customer Survey General Discharge Information Prescriptions: Current Visit Scripts Ciprofloxacin (Ciloxan) 1 GTT OPH 4 TIMES/DAY #5 ML
== END 2016-05-18 01:36 ==
LOC: ERH 00:48
DX: H10.9 Unspecified conjunctivitis (principal)

== ENCOUNTER 2016-07-05 20:16 | Emergency (ER) | payer OTHER, MEDICARE ==
[~2016-07-05] VITALS: Ht 154.9 cm; Wt 81.6 kg
[~2016-07-05 20:16] MED LIST changes: +CILOXAN5 ML OPH
[2016-07-05 20:27] VITALS: BP 174/100
--- NOTE | 2016-07-05 20:53 | ED INFLUENZA/URI COMPLAINT ---
History of Present Illness General Chief Complaint: General Adult Stated Complaint: HEADACHE AND FEVER Source: patient, family, old records Exam Limitations: no limitations Vital Signs & Intake/Output Vital Signs & Intake/Output Vital Signs Date Time Temp Pulse Resp B/P B/P Pulse O2 O2 Flow FiO2 Mean Ox Delivery Rate 07/06 2027 Room Air 07/05 2026 97.1 65 18 174/100 93 Room Air Allergies Coded Allergies: pork derived (porcine) (DIETARY RESTRICTION 06/05/15) Reconcile Medications Acetaminophen (Tylenol Xstr) 500 MG TAB 2 TAB PO Q6 PRN PAIN (Reported) Alprazolam (Xanax) 0.25 MG TABLET 1 TAB PO Q8H PRN ANXIETY (Reported) Amlodipine Besylate 5 MG TABLET 1 TAB PO DAILY heart (Reported) Ciprofloxacin (Ciloxan) 0.3 % DROPS 1 GTT OPH 4 TIMES/DAY conjunctivitis Clopidogrel Bisulfate (Plavix) 75 MG TABLET 1 TAB PO DAILY PROPHYLACTIC ( Reported) Cyanocobalamin (Vitamin B-12) (B-12) 1,000 MCG TABLET 1 TAB PO DAILY SUPPLEMENT (Reported) Lisinopril 40 MG TABLET 1 TAB PO DAILY HTN (Reported) Magnesium Oxide (Magnesium) 400 MG CAPSULE 1 CAP PO DAILY SUPPLEMENT ( Reported) Metformin HCl 850 MG TABLET 1 TAB PO BID DM (Reported) Metoprolol Tartrate 25 MG TABLET 1 TAB PO BID heart rate (Reported) Multiple Vitamin (Multivitamins) 1 EACH TABLET 1 TAB PO DAILY SUPPLEMENT ( Reported) Omeprazole 40 MG CAPSULE.DR 1 CAP PO DAILY GERD (Reported) Polyethylene Glycol 3350 (Miralax) 17 GRAM/DOSE POWDER 17 GM PO DAILY Constipation mix with water, juice, soda, coffee or tea Simvastatin (Simvastatin*) 20 MG TABLET 1 TAB PO QPM HPL (Reported) Triage Note: PT BIBA C/O FEVER AND HEADACHE ON AND OFF FOR 2 MONTHS.. PER PT GOT WORSE TODAY AND CALLED EMS.. PT STATES THAT HE THROAT HURTS THE LAST COUPLE OF HOURS. PT HAS HX OF HTN,PNA AND DM Triage Nurses Notes Reviewed? yes Onset: Gradual Duration: intermittent, intermittent x 2 months Timing: recent history Severity: mild, moderate Severity Numbers: 6 Prior Episodes/Possible Cause: occassional episodes No Modifying Factors: none Associated Symptoms: denies HPI: 86-year-old female with history of CAD with stenting 2007, hyperlipidemia, hypertension, diabetes, CVA presents brought in by ambulance complaining of intermittent subjective fevers and headaches on and off for the past 2 months. The patient was recently admitted for pneumonia 2 months ago.. She denies cough congestion she is not taken anything for her fevers or headache. No abdominal pain chest pain nausea vomiting diarrhea. No urinary complaints. She states that her throat was bothering her a few hours ago however that is resolved no ear pain or rashes to her skin. (RAUL HOYT) Past History Travel History Traveled to [place] past 21 day No Medical History Any Pertinent Medical History? see below for history Neurological: CVA EENT: cataracts Cardiovascular: CAD, hypertension, hyperlipidemia Respiratory: NONE Gastrointestinal: GERD, GI BLEED Hepatic: NONE Renal: UTI Musculoskeletal: NONE Psychiatric: NONE Endocrine: diabetes, B12 DEFICIENCY Blood Disorders: NONE Cancer(s): NONE PROFESSOR OF SOCIOLOGY/Reproductive: NONE History of MRSA: No History of VRE: No History of CDIFF: No Surgical History Surgical History: ENDARDERECTOMY CARDIAC STENTS ANGIOPLASTY AND STENTING Psychosocial History Who do you live with Daughter Services at Home None What is your primary language [facility] Tobacco Use: Never used Family History Hx Contributory? No (RAUL HOYT) Review of Systems Review of Systems Constitutional: Reports: see HPI. All Other Systems: Reviewed and Negative Comments Review of systems: See HPI, All other systems negative. Constitutional, no chills no fever, no malaise no weight loss HEENT: No visual changes no sore throat no congestion, no ear pain Cardiovascular: No chest pain , no palpitation , no orthopnea Skin: no rashes, no change in skin Respiratory: No dyspnea no cough no sputum no hemoptysis GI: No nausea no vomiting, no diarrhea, no bloating/constipation : No dysuria No hematuria, no frequency, no discharge Muscle skeletal: No joint pain, no joint swelling, no back pain, no neck pain, Neurologic: No numbness no confusion, no headache Psych: No stress no depression,. Heme/endocrine: No bruising no bleeding Immunology: No lymphadenopathy (RAUL HOYT) Physical Exam Physical Exam General Appearance: well developed/nourished, no apparent distress, alert Ears, Nose, Throat: normal ENT inspection, moist mucous membrane, hearing grossly normal, Tympanic normal Comments: Well-developed well-nourished person in no acute distress Head/Face: Atraumatic, no maxillary/frontal sinus tenderness, no facial swelling Eyes: PERRL, EOMI, no conjunctival injection. No nystagmus Ear:External auditory canal and Tympanic membranes clear, no erythema, no FB. Nose: atraumatic.Normal inspection: No bleeding, Throat: Moist mucous membranes.Pharynx normal. No pharyngeal erythema/exudate seen. No stridor/drooling or assymetry. No swelling or edema. Neck: Supple, no lymphadenopathy, FROM Back: Nontender, no CVA tenderness. Full range of motion Cardiovascular: Regular rate and rhythms no murmurs rubs Respiratory: Chest nontender.There were no bony deformities, no asymmetry. No respiratory distress. Patient speaking in full complete sentences. Breath sounds clear to auscultation bilaterally: NO W/R/R Abdomen: Soft, nontender nondistended, no appreciable organomegaly. Normal bowel sounds. No rebound/guarding, Extremity: No edema, full range of motion of extremities Neuro: Alert oriented x3, motor sensory normal, cranial nerves II through XII grossly intact. There were no obvious focal neurologic abnormalities. Skin: No appreciable rash on exposed skin, skin is warm and dry. Psych: Mood and affect is normal, memory and judgment is normal. Core Measures Severe Sepsis Present: No Septic Shock Present: No (PAULINA FISHER,RAUL) Progress Differential Diagnosis: influenza, meningitis, otitis, pneumonia, pharyngitis, sinusitis, uti Plan of Care: Orders Procedure Date/time Status URINALYSIS 07/05 2030 Complete COMPREHENSIVE METABOLIC PANEL 07/05 2030 Complete CBC WITHOUT DIFFERENTIAL 07/05 2030 Complete Laboratory Tests 07/05/16 2144: Urine Color STRAW, Urine Clarity CLEAR, Urine pH 7.0, Ur Specific [place] 1.010, Urine Protein NEG, Urine Ketones NEG, Urine Nitrite NEG, Urine Bilirubin NEG, Urine Urobilinogen 0.2, Ur Leukocyte Esterase NEG, Ur Microscopic EXAM NOT REQUIRED, Urine Hemoglobin NEG, Urine Glucose NEG 07/05/16 2100: Anion Gap 10, Estimated GFR > 60, BUN/Creatinine Ratio 35.0 H, Glucose 95, Calcium 9.1, Total Bilirubin 0.5, AST 28, ALT 33, Alkaline Phosphatase 71, Total Protein 6.2 L, Albumin 3.6, Globulin 2.6, Albumin/Globulin Ratio 1.4, CBC w Diff NO MAN DIFF REQ, RBC 3.65 L, MCV 98.1, MCH 32.3 H, RDW 14.4, MPV 6.1 L, Gran % 59.3, Lymphocytes % 31.0, Monocytes % 8.9, Eosinophils % 0.5, Basophils % 0.3, Absolute Granulocytes 4.4, Absolute Lymphocytes 2.3, Absolute Monocytes 0.7 H, Absolute Eosinophils 0, Absolute Basophils 0, PUBS MCHC 33.0 Labs ordered old records reviewed Repeat evaluation patient is resting in no apparent distress case discussed with Dr. James agrees with plan Discussed with the patient at length all of her lab results clinically appears well afebrile nontoxic appearing advise close follow-up with her primary care physician return anytime sooner with any concerns (ARUL HOYT) Diagnostic Imaging: Viewed by Me: Radiology Read. Discussed w/RAD: Radiology Read. Radiology Impression: PATIENT: LOAN ANNE PRESENT AGE: 86 PATIENT ACCOUNT NO: [id number] : 30 LOCATION: [facility] ORDERING PHYSICIAN: RAUL FISHER SERVICE DATE: 07/05/16 EXAM TYPE: RAD - XRY- PORTABLE CHEST XRAY EXAMINATION: XR PORTABLE CHEST CLINICAL INFORMATION: Fever COMPARISON: Previous dated 01/30/2015, 04/18/2016, 01/26/2016, TECHNIQUE: Portable AP view of the chest was obtained. FINDINGS: There is some cephalization of the vasculature. No overt failure. Lung lazo are grossly clear otherwise. No infiltrate. No effusion. IMPRESSION: Cephalization of the vasculature. No overt failure. No infiltrate. DICTATED BY: JANEEN RUTH MD DATE/TIME DICTATED:07/05/162154 STARTING GATE DRIVER:RAYMOND DATE/TIME TRANSCRIBED:07/05/162154 CONFIDENTIAL, DO NOT COPY WITHOUT APPROPRIATE AUTHORIZATION. <Electronically signed in Other Vendor System> SIGNED BY: JANEEN RUTH MD 07/05/162200 Initial ED EKG: none (RAUL HOYT) Departure Departure Time of Disposition: 2200 Disposition: HOME OR SELF CARE Condition: Stable Clinical Impression Primary Impression: Normal exam Referrals: CAYLA STOKES,VIVIANE Pierce (PCP/Family) Additional Instructions: FOLLOW UP WITH YOUR PMD THIS WEEK. RETURN TO THE ER WITH ANY CONCERNS Departure Forms: Customer Survey General Discharge Information (RAUL HOYT) PA/[employer] Co-Sign Statement Statement: ED Attending supervision documentation- x I saw and evaluated the patient. I have also reviewed all the pertinent lab results and diagnostic results. I agree with the findings and the plan of care as documented in the PA's/[employer]ESSION[employer]'s documentation. [] I have reviewed the ED Record and agree with the PA's/[employer]ICAL PROFESSIONALS's documentation. [] Additions or exceptions (if any) to the PAs/MEDICAL PROFESSIONALS's note and plan are summarized below: [] (JUANJOSE STOKES,ORIANA)
[2016-07-05 21:07] LABS: ABSOLUTE BASOPHIL COUNT 0 /CUMM (0.0-0.2); ABSOLUTE EOSINOPHIL COUNT 0 /CUMM (0.0-0.7); ABSOLUTE GRANULOCYTE CT 4.4 /CUMM (1.4-6.5); ABSOLUTE LYMPH COUNT 2.3 /CUMM (1.2-3.4); ABSOLUTE MONOCYTE COUNT 0.7 /CUMM (0.10-0.60); BASOPHIL % 0.3 % (0.0-2.0); EOSINOPHIL % 0.5 % (0-5); GRANULOCYTE % 59.3 % (42.2-75.2); HEMATOCRIT 35.8 % (37-47); MEAN CORPUSCULAR HGB 32.3 PG (27.0-31.0); MEAN CORPUSCULAR VOLUME 98.1 FL (81.0-99.0); MEAN PLATELET VOLUME 6.1 FL (7.4-10.4); PLATELET COUNT 231 /CUMM (130-400); RBC DISTRIBUTION WIDTH 14.4 % (11.5-14.5); RED BLOOD CELL CT 3.65 /CUMM (4.20-5.40); WHITE BLOOD CELL COUNT 7.3 /CUMM (4.8-10.8)
--- NOTE | 2016-07-05 22:01 | RADIOLOGY REPORT ---
EXAMINATION: XR PORTABLE CHEST CLINICAL INFORMATION: Fever COMPARISON: Previous dated 01/30/2015, 04/18/2016, 01/26/2016, TECHNIQUE: Portable AP view of the chest was obtained. FINDINGS: There is some cephalization of the vasculature. No overt failure. Lung lazo are grossly clear otherwise. No infiltrate. No effusion. IMPRESSION: Cephalization of the vasculature. No overt failure. No infiltrate.
== END 2016-07-05 22:16 ==
LOC: ERH 20:16
PROVIDERS: Physician Assistant Medical
DX: Z00.00 Encounter for general adult medical examination without abnormal findings (principal); R50.9 Fever, unspecified; I10 Essential (primary) hypertension
CPT/HCPCS: 81003